=== PATIENT | female | born 1955 | race Caucasian/White ===

== ENCOUNTER → 2019-03-23 09:18 | Outpatient (CLI) | payer OTHER, SELFPAY ==
--- NOTE | ~2019-03-23 | MR_ITS ---
EXAMINATION: MR lumbar spine wo con DATE: 03/23/2019 10:28 INDICATION: Mid to low back pain. Radiculopathy. TECHNIQUE: Magnetic resonance imaging (MRI) of the lumbar spine was performed without intravenous con trast. Sequences included sagittal T2-weighted FSE, sagittal T2-weighted FS FSE, sagittal T1-weighted FSE, and axial T2-weighted FSE. COMPARISON: None FINDINGS: There is 24 degrees levoscoliosis of lumbar spine. There is 4 mm anterolisthesis of L4 on L 5. There is 3 mm retrolisthesis of L1 on L2 and L2 on L3. Vertebral body heights are normal. There is mildly decreased disc height at T12-L1, severely decreased disc height at L1-L2, L2-L3, and L3-L4, m ildly decreased disc height at L4-L5, and moderately decreased disc height at L5-S1. The distal spina l cord signal intensity is normal. The conus medullaris is at T12-L1. The following disc levels are s pecifically discussed: L1-L2: The disc is bulging and has an annular fissure. There is mild bilateral facet joint osteoarthr itis. There is mild bilateral neural foraminal stenosis. There is mild central canal stenosis. L2-L3: The disc is bulging and has an annular fissure. There is moderate right and mild left facet valentina int osteoarthritis. There is mild bilateral neural foraminal stenosis. There is mild central canal st enosis. L3-L4: The disc is bulging and has an annular fissure. There is severe bilateral facet joint osteoart hritis. There is mild right and moderate left neural foraminal stenosis. There is moderate central ca nal stenosis. L4-L5: The disc is bulging and has an annular fissure. There is severe bilateral facet joint osteoart hritis. There is mild right and moderate left neural foraminal stenosis. There is severe central camille l stenosis. L5-S1: The disc is bulging and has an annular fissure. There is moderate right and severe left facet joint osteoarthritis. There is mild right and moderate left neural foraminal stenosis. There is mild central canal stenosis. IMPRESSION: 1. Severe lumbar spondylosis. 2. Lumbar levoscoliosis. Reviewed, dictated and finalized at location A. MAKER
== END ==
PROVIDERS: PCP Internal Medicine; Visit Provider Internal Medicine
DX: M47.26 Other spondylosis with radiculopathy, lumbar region (principal)
CPT/HCPCS: 72148

== ENCOUNTER 2019-11-19 09:39 | Outpatient (CLI) | payer OTHER, SELFPAY ==
--- NOTE | ~2019-11-19 | XR_ITS ---
XR lumbar spine min 4V DATE: 11/19/2019 10:18 INDICATION: Chronic low back pain. No injury. TECHNIQUE: AP, lateral, bilateral oblique and coned lateral lumbosacral views COMPARISON: 03/23/2019 MRI lumbar spine FINDINGS: There is prominent rotatory levoscoliosis and severe degenerative disc disease throughout t he lumbar spine. There is degenerative change at the apophyseal joints as well, with associated grade 1 anterolisthesis at L4-5. The sacroiliac joints are intact. There is extensive calcification of the abdominal aorta. IMPRESSION: Prominent rotatory levoscoliosis and severe degenerative disease of the lumbar spine Grade 1 anterolisthesis at L4-5 due to degenerative change at the apophyseal joints Reviewed, dictated and finalized at location A. IMPRESSION: Prominent rotatory levoscoliosis and severe degenerative disease of the lumbar spine Grade 1 anterolisthesis at L4-5 due to degenerative change at the apophyseal valentina ints
== END 2019-11-19 09:40 | disposition home or self-care (01) ==
PROVIDERS: PCP Internal Medicine; Visit Provider Neurological Surgery
DX: M51.36 Other intervertebral disc degeneration, lumbar region (principal); M43.16 Spondylolisthesis, lumbar region; M48.062 Spinal stenosis, lumbar region with neurogenic claudication; M46.1 Sacroiliitis, not elsewhere classified
CPT/HCPCS: 72110

== ENCOUNTER 2019-12-09 13:34 | Outpatient (CLI) | payer OTHER, SELFPAY ==
--- NOTE | 2019-12-09 13:44 | ECHO_ITS ---
Patient Info Name: Wilner Carey Age: 64 years : 1955 Gender: Female Ht: 63 in Wt: 210 lbs BSA: 2.10 m2 HR: 68 bpm BP: 142 / 89 mmHg Technical Quality: Good Exam Date: 12/09/2019 2:13 PM Exam Location: [facility] Patient Status: Outpatient Admit Date: 12/09/2019 Staff Ordering Physician: Jono Galeano DO Flotation Operator: Yaneli Smith RDCS Attending Provider: Jono Galeano DO Referring Physician: Froylan RAHMAN; Exam Type: CA echo doppler color flow Study Info Indications R06.00 - Dyspnea, unspecified Complete two-dimensional, color flow and Doppler transthoracic echocardiogram is performed. Summary 1. Complete two-dimensional, color flow and Doppler transthoracic echocardiogram is performed. 2. Left ventricular chamber dimension is normal. 3. Ventricular septum is sigmoid shaped. No LVOT obstruction. 4. Left ventricular systolic function is normal, estimated at 60-65%. 5. The left ventricular diastolic function is grade I diastolic dysfunction. 6. E/e' 19 is elevated. 7. Left atrial chamber dimension is mildly enlarged. 8. There is mild aortic valve regurgitation. 9. There is trace mitral valve regurgitation. 10. There is trace tricuspid valve regurgitation. 11. No pulmonary hypertension, estimated pulmonary arterial systolic pressure is 25 mmHg. Left Ventricle E/e' 19 is elevated. Ventricular septum is sigmoid shaped. No LVOT obstruction. Left ventricular chamber dimension is normal. Left ventricular systolic function is normal, estimated at 60-65%. The left ventricular diastolic function is grade I diastolic dysfunction. Right Ventricle Right ventricular chamber dimension is normal. Right ventricular systolic function is normal. Left Atria Left atrial chamber dimension is mildly enlarged. Right Atria Right atrial chamber dimension is normal. Aortic Valve The aortic valve is trileaflet. There is no aortic valve stenosis. There is mild aortic valve regurgitation. Pulmonic Valve There is no pulmonic regurgitation. Mitral Valve There is no mitral valve stenosis. There is trace mitral valve regurgitation. Tricuspid Valve There is trace tricuspid valve regurgitation. No pulmonary hypertension, estimated pulmonary arterial systolic pressure is 25 mmHg. Pericardium/Pleural There is no pericardial effusion. Inferior Vena Cava Normal inferior vena cava with >50% collapse upon inspiration consistent with normal right atrial pressure, 5 mmHg. Aorta The aortic root size at the sinus of Valsalva is normal. Left Ventricular Outflow Tract Name Value Normal LVOT 2D LVOT Diameter 2.0 cm LVOT Doppler LVOT Peak Gradient 5 mmHg LVOT Mean Gradient 3 mmHg LVOT VTI 28 cm LVOT VTI/AV VTI Ratio 0.8 LVOT Stroke Volume 85 ml LVOT CO 14.7 l/min LVOT CI 7.0 l/min/m2 Pulmonic Valve
== END 2019-12-09 13:35 | disposition home or self-care (01) ==
LOC: ANHCARD 13:37
PROVIDERS: PCP Internal Medicine; Visit Provider Internal Medicine Cardiovascular Disease
DX: R06.00 Dyspnea, unspecified (principal); I35.1 Nonrheumatic aortic (valve) insufficiency
CPT/HCPCS: 93306

== ENCOUNTER 2021-12-11 09:43 | Outpatient (CLI) | payer OTHER, SELFPAY ==
--- NOTE | ~2021-12-11 | NM_ITS ---
EXAMINATION: NM mike stress w perfusion DATE: 12/11/2021 12:40 INDICATION: Dyspnea, unspecified. TECHNIQUE: Rest images were obtained following intravenous administration of 10.4 mCi Tc99m tetrofosm in (Myoview). The patient was infused intravenously with Lexiscan (regadenoson). Then, 31.7 mCi Tc99m tetrofosmin (Myoview) was administered intravenously, and supine and prone stress images were obtain ed. Data was reconstructed into short axis and horizontal and vertical long axis SPECT images. Gated SPECT images were also obtained. COMPARISON: None. FINDINGS: There is a moderate-sized, moderate severity, fixed perfusion defect involving left ventric ular apex, apical to mid anterior segments, apical septal segment, and mid anteroseptal segment, cons istent with infarct. There is no reversible component to suggest ischemia. There is no segmental wall motion abnormality. Left ventricular ejection fraction measures 63%. IMPRESSION: 1. 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 2. Normal left ventricular ejection fraction measuring 63%. Reviewed, dictated and finalized at location A. IMPRESSION: 1. Moderate-sized area of moderate infarct involving left ventricular apex, api ricco to mid anterior segments, apical septal segment, and mid anteroseptal segme nt. 2. Normal left ventricular ejection fraction measuring 63%.
--- NOTE | 2021-12-11 09:55 | EST_ITS ---
Patient Info Name: Wilner Carey Age: 66 years : 1955 Gender: Female Ht: 63 in Wt: 197 lbs BSA: 2.03 m2 Exam Date: 12/11/2021 11:20 AM Exam Location: [facility] Stress Patient Status: Outpatient Admit Date: 12/11/2021 Staff Ordering Physician: Jono Galeano DO Attending Provider: Jono Galeano DO Exercise Technologist: Bridgett Bardales RDCS Exercise Physician: Jono Galeano DO Exam Type: CA stress mike w NM Study Info Indications R06.09 - Other forms of dyspnea A regadenoson stress test was performed. Summary 1. 1. Inconclusive lexiscan stress test for ischemic ST changes by ECG criteria due to baseline LBBB. 2. 2. Baseline hypertension. 3. 3. Nuclear scan to follow and will be reported separately. Please correlate with it. 4. 4. Patient informed of the above results. Protocol: Lexiscan Stress ECG Details Stage: REST Duration (min): 5 min : 0 sec HR (bpm): 66 SBP (mmHg): 161 DBP (mmHg): 80 Stage: REST Duration (min): 9 min : 24 sec HR (bpm): 67 SBP (mmHg): 161 DBP (mmHg): 80 Stage: STAGE 1 Duration (min): 1 min : 0 sec HR (bpm): 83 SBP (mmHg): 161 DBP (mmHg): 80 Stage: RECOVERY Duration (min): 1 min : 0 sec HR (bpm): 83 SBP (mmHg): 160 DBP (mmHg): 73 Stage: RECOVERY Duration (min): 2 min : 0 sec HR (bpm): 84 SBP (mmHg): 161 DBP (mmHg): 75 Stage: RECOVERY Duration (min): 3 min : 0 sec HR (bpm): 81 SBP (mmHg): 162 DBP (mmHg): 74 Stage: RECOVERY Duration (min): 3 min : 18 sec HR (bpm): 81 SBP (mmHg): 162 DBP (mmHg): 74 Rest HR: 67 bpm Peak HR: 88 bpm Rest Sys BP: 161 mmHg Peak Sys BP: 162 mmHg Max Pred HR: 156 bpm % Max Pred HR: 56 % Target HR: 133 bpm Max RPP: 14,256 bpm*mmHg Termination Reason: Completed protocol Cardiac Symptoms: SOB, nause Total Time: 1 min : 0 sec Rest Lawson BP: 80 mmHg Peak Lawson BP: 74 mmHg Total Dose: 0.4 mg Resting ECG Sinus rhythm, LBBB. Stress ECG No ST changes. Arrhythmias None. Report Signatures
== END 2021-12-11 09:44 | disposition home or self-care (01) ==
LOC: ANHCARD 09:45
PROVIDERS: PCP Family Medicine; Visit Provider Internal Medicine Cardiovascular Disease
DX: R06.00 Dyspnea, unspecified (principal); I10 Essential (primary) hypertension
CPT/HCPCS: 78452; 93017; A9502; J2785

== ENCOUNTER 2022-12-13 10:07 | Outpatient (CLI) | payer OTHER, MEDICARE, SELFPAY ==
--- NOTE | ~2022-12-13 | XR_ITS ---
XR hand RT min 3V DATE: 12/13/2022 10:32 INDICATION: Pain and stiffness of right hand TECHNIQUE: 3 views COMPARISON: None FINDINGS: There is joint space narrowing at the first and third metacarpophalangeal and multiple inte rphalangeal joints, particularly the distal interphalangeal joint of the fourth and fifth digits. The re is associated spurring at the DIP joints of the fourth and fifth digits. No fracture or dislocation, periosteal reaction or bone destruction or chondrocalcinosis is noted. IMPRESSION: Polyarticular osteoarthritis Reviewed, dictated and finalized at location B.
--- NOTE | ~2022-12-13 | XR_ITS ---
XR hand LT min 3V DATE: 12/13/2022 10:32 INDICATION: Left hand pain, stiffness TECHNIQUE: 3 views COMPARISON: None FINDINGS: There is osteopenia. There is polyarticular osteoarthritis, involving the triscaphe, first carpal metacarpal and particula rly the distal interphalangeal joints of the fourth and fifth digits, in addition to some narrowing a t the first through third metacarpophalangeal joints. No fracture or dislocation, periosteal reaction or bone destruction or chondrocalcinosis is noted. IMPRESSION: Polyarticular osteoarthritis Reviewed, dictated and finalized at location B.
== END 2022-12-13 10:08 | disposition home or self-care (01) ==
PROVIDERS: PCP Family Medicine; Visit Provider Plastic Surgery
DX: M19.041 Primary osteoarthritis, right hand (principal); M19.042 Primary osteoarthritis, left hand
CPT/HCPCS: 73130

== ENCOUNTER 2025-01-02 18:37 | Emergency (ER) | payer MEDICARE, SELFPAY ==
--- NOTE | 2025-01-02 18:38 | ED.URI ---
HPI - URI/Sore Throat General Chief Complaint: Upper Respiratory Infection Stated Complaint: URI Time Seen by Provider: 01/02/25 18:38 Source: patient Mode of arrival: ambulatory Limitations: no limitations History of Present Illness HPI Narrative: Wilner is a 69-year-old female patient presenting to the clinic today with complaints of sinus congestion, sinus pressure, and productive cough with green phlegm x 2.5 weeks. She reports has been taking DayQuil, elderberry syrup, and robitussin for her symptoms. Denies any fever, chills, or body aches. Related Data Home Medications ?Medication ?Instructions ?Recorded ?Confirmed ?Last Taken ?Type acetaminophen 325 mg tablet 325 mg PO Q6H PRN 11/02/19 09/08/24 Unknown History (Tylenol) omeprazole 20 mg capsule,delayed 20 mg PO DAILY 11/02/19 09/08/24 Unknown History release omega 2-ska-muh-fish oil 1,000 mg 1 cap PO DAILY 01/29/22 09/08/24 Unknown History (120 mg-180 mg) capsule (Fish Oil) Allergies Allergy/AdvReac Type Severity Reaction Status Date / Time No Known Allergies Allergy Verified 01/02/25 18:48 Review of Systems Review of Systems: Pertinent positives per HPI. Patient denies any fever, chills, rash, headache, visual changes, dizziness, shortness of breath, chest pain, palpitations, nausea, vomiting, diarrhea, constipation, abdominal pain, or any urinary issues. [facility] Past Medical History Medical History Facial paralysis on left side Left shoulder pain Hand deformity Arthritis Lumbar pain Venous stasis Skin abnormalities Facial spasm History of blood transfusion Dyslipidemia Hypertension Surgical History Surgical History History of cholecystectomy History of carpal tunnel release History of delivery Family History Family History Father , age 76 Hypertension Heart disease Mother Heart disease Lymphoma Other Family history of arthritis Family history of cardiovascular disease Family history of malignant neoplasm Social History Social History Social History: Patient declined [facility]- 09/16/23 Smoking packs per day: 0.5 Smoking cigarettes per day: 10.0 Years smoked: 50 Smoking pack-years: 25.00 Smoking status: Current every day smoker Tobacco type: cigarettes Alcohol intake: current Do You Feel Safe in your Home?: Yes Lack of Transportation: No Lack of Food: Never True Current Housing: I Have Housing Concerned About Future Housing: No Difficulty Paying Gas/Electric Bills: No Difficulty Paying for Meds: No Currently Unemployed: No Education: High School Diploma/GED Difficulty w/ Childcare or Family Care: No Living arrangements: with family Occupation/Education: occupation Additional occupation/education comments: [employer] Comments At the time of my signature, I reviewed and agree with the nursing past medical, surgical, social, and family history. There is no relevant family history pertinent to the patient complaint. Exam Narrative: General: Well-developed, obese, in no apparent distress Head: Normocephalic, atraumatic Eyes: Pupils equally round and reactive to light bilaterally, EOM intact, sclera and conjunctive clear, no discharge, lids normal Ears: TMs intact and congested, ear canals clear, no drainage, grossly hearing normal. Nose: Nares patent, green nasal discharge, moderate inflammation, maxillary sinus tenderness. Mouth: Oral pharynx red without lesions or masses, good dentition, MMM. PND Neck: Supple, trachea midline, no enlargement of anterior or posterior cervical nodes, no thyroid masses or goiter palpable. Cardio: Regular rate and rhythm, s1 and s2 normal, no murmur appreciated. Resp: Clear to auscultation bilaterally, no rhonchi, rales, wheezing or rubs Course Course Emergency Course: Portions of this record may have been created with voice recognition software. Level of Care: Express Care Visit Vital Signs Vital signs: Vital Signs Temperature 36.8 C 01/02/25 18:48 Pulse Rate 84 01/02/25 18:48 Respiratory Rate 18 01/02/25 18:48 Blood Pressure 158/72 H 01/02/25 18:48 Pulse Oximetry 97 01/02/25 18:48 Oxygen Delivery Room Air 01/02/25 18:48 Temperature 36.8 C 01/02/25 18:48 Pulse Rate 84 01/02/25 18:48 Respiratory Rate 18 01/02/25 18:48 Blood Pressure 158/72 H 01/02/25 18:48 Pulse Oximetry 97 01/02/25 18:48 Oxygen Delivery Room Air 01/02/25 18:48 Vital signs reviewed MDM - URI/Sore Throat MDM Narrative Medical decision making narrative: At the time of visit patient is resting comfortably on the exam table. Patient appears to be nontoxic. Complaints of sinus congestion, sinus pressure, and productive cough with green phlegm x 2.5 weeks. She reports has been taking DayQuil, elderberry syrup, and Robitussin for her symptoms. Denies any fever, chills, or body aches. On exam patient has bilateral TMs intact and congested, green nasal drainage, moderate return inflammation, maxillary sinus tenderness, oropharynx red with postnasal drip, heart rate regular rate and rhythm, lung sounds clear in the clinic today. Plan: I suspect patient has acute bacterial rhinosinusitis. Prescription for Augmentin, prednisone, and Tessalon Perles was sent to the pharmacy. Supportive measures were discussed with the patient and they voiced understanding discharge instructions and agrees to treatment plan. Return precautions reviewed Differential Diagnosis Differential diagnosis: Likely upper respiratory infection, otitis media, sinusitis, viral infection, bronchitis, influenza, pharyngitis and other (COVID) Discharge Plan Discharge Clinical Impression: Acute bacterial rhinosinusitis Patient Disposition: Home Condition: Stable Instructions: Antibiotic Form, Rhinosinusitis (ED) Additional Instructions: Take prescription medications only as prescribed-Augmentin, prednisone, and Tessalon Perles Increase fluids and stay well hydrated May take Tylenol or motrin as directed on bottle for pain/fever May use Flonase 1 spray in each nare daily May take OTC antihistamines such as Zyrtec or Claritin daily as directed on bottle May apply Vicks vapor rub to chest to open sinuses Sinus rinses for congestion Cepacol spray, cough drops, throat lozenges, warm tea with honey/lemon, gargle salt water to soothe throat BRAT diet for diarrhea Clear liquids x 24 hours then advance as tolerated for nausea/vomiting Go to the ED if you develop a worsening in your condition- high fever not controlled by Tylenol or Motrin, dehydration, weakness, lethargy, shortness of breath, or chest pain. Follow up with your PCP in 3-5 days if symptoms persist. Patient Language: Telugu Prescriptions: New prednisone 20 mg tablet 40 mg PO DAILY 5 Days Qty: 10 0RF amoxicillin-pot clavulanate 875-125 mg tablet 1 tablet PO Q12H 10 Days Qty: 20 0RF benzonatate 200 mg capsule 200 mg PO TID 7 Days Qty: 21 0RF No Action omeprazole 20 mg capsule,delayed release(DR/EC) 20 mg PO DAILY acetaminophen [Tylenol] 325 mg tablet 325 mg PO Q6H PRN omega 5-bwp-uli-fish oil [Fish Oil] 1,000 mg (120 mg-180 mg) capsule 1 cap PO DAILY nebivolol [Bystolic] 2.5 mg tablet 2.5 mg PO DAILY Qty: 90 1RF rosuvastatin 10 mg tablet See Rx Instructions .ROUTE .COMPLEX Qty: 90 1RF Dose Instruction: Take 1 tablet by mouth once daily Rx Instructions: Take 1 tablet by mouth once daily losartan-hydrochlorothiazide 100-25 mg tablet 1 tablet PO DAILY Qty: 90 1RF meloxicam 15 mg tablet 15 mg PO DAILY Qty: 90 1RF fluoxetine 40 mg capsule 40 mg PO DAILY Qty: 90 1RF Follow-up/Referrals: Xiao Cain APRN [Primary Care Provider, Family Practice] Time of Disposition: 18:52 Quality NIHSS Nursing Documentation ED NIHSS nursing documentation: reviewed/agree
--- OUTSIDE RECORDS SUMMARY | 2025-01-02 18:40 | XMS_ITS | Clinical Summary ---
Author Organization [facility] Address [address] [place] [address] Care Team Providers Care Manager Commodities Name Role Phone Unavailable Primary Care Provider Unavailabl e Source Comments [facility],non-owned Affiliates and Associated Physician Practices is amultiple site organization consisting of ambulatory clinics and hospital sitesin [place], [place], [place] and [place]. This disclosure is being madepursuant to the Care Everywhere program and may not contain all information available regarding this patient. Last updated 17.[facility] Allergies No known active allergies Medications * Be aware that medications may not be up to date on this document. Alwaysverify current medications with the patient. acetaminophen (Tylenol) 325 MG tablet Take 2 (two) tablets by mouth every 6 hours as needed Maximum allowable Acetaminophen amount = 4 Grams (4000 mg) / 24 hours. 11/16/19 22 Active ibuprofen (Motrin) 600 MG tablet Take 1 (one) tablet by mouth every 6 hours as needed 11/16/19 22 Active amLODIPine (Norvasc) 10 MG tabletIndication s:Essential hypertension Take 1 (one) tablet by mouth once daily 90 tablet 1 11/23/19 22 Active aspirin (Aspirin) 81 MG chew tablet Take 1 (one) tablet by mouth once daily 90 tablet 1 11/23/19 22 Active losartan (Cozaar) 50 MG tabletIndication s:Essential hypertension Take 1 (one) tablet by mouth once daily 90 tablet 1 11/23/19 Active rosuvastatin (Crestor) 10 MG tablet Take 1 (one) tablet by mouth once daily 90 tablet 1 11/23/19 Active Venlafaxine HCl (venlafaxine ER 24hr) 37.5 MG tablet Take 1 (one) tablet by mouth once daily 90 tablet 1 11/23/19 Active omeprazole (PriLOSEC) 20 MG capsule Take 20 mg by mouth daily before breakfast Active vitamin D3 (Cholecaciferol) 125 MCG (5000 UT) Take 5,000 Units by mouth once daily Active Magnesium 100 MG Take 200 mg by mouth 2 times daily for eye twitch Active Iron-Vitamin C 65-125 MG TABS Take 1 tablet by mouth once daily Active Homeopathic Products (LEG CRAMPS PO) Take 3 tablets by mouth once daily as needed Active traMADol (Ultram) 50 MG tablet Take 50 mg by mouth every 6 hours as needed 11/07/19 Active Blood Pressure Monitoring (Blood Pressure Cuff) MISCIndications: Syncope and collapse,Essenti al hypertension Use 1 Units once daily 1 Each 11/23/19 Active support hose knee high moderate compression (Jobst) support hoseIndications: Syncope and collapse Apply 1 (one) Each to affected area as directed USE DAILY NEEDED TO REDUCE LOWER EXTREMITY SWELLING. PUT ON IN AM AND TAKE OFF AT BEDTIME. 1 Each 11/23/19 Active Active Problems Problem Noted Date Diagnosed Date Syncope and collapse 11/12/2021 LBBB (left bundle branch block) 11/12/2021 Fall 11/12/2021 Immunizations Immunization Administration Dates Next Due HEP A VACCINE, ADULT 08/11/2000,09/12/1999 iNFLUENZA VACCINE, RECOM-DAILY, QUADR. (FLUBLOCK QUADRIVALENT; 18Y+) (RIV4) 11/05/2020 Family History Medical History Relation Name Comments CVA Father Cancer Father Relation Name Status Comments Father Social History Tobacco Use Types Packs/Day Years Used Date Smoking Tobacco: Every Day Cigarettes 0.5 50 Smokeless Tobacco: Never Alcohol Use Standard Drinks/Week Comments Never 0 (1 standard drink = 0.6 oz pur e alcohol) Hunger Vital Sign Answer Date Recorded Within the past 12 months, y ou worried that your food would run out before you got the money to buy more. Never true 11/15/19 22 Within the past 12 months, t he food you bought just didn't last and you didn't have money to get more. Never true 11/14/2021 Comments Unknown Sex and Gender Information Value Date Recorded Sex Assigned at Not on file Legal Sex Female 8:05 AM CDT Gender Identity Not on file Sexual Orientation Not on file Last Filed Vital Signs Vital Sign Reading Time Taken Comments Blood Pressure 142/78 11/22/2021 10:35 AM CDT Pulse 69 11/22/2021 10:35 AM CDT Temperature 36.2 C (97.2 F) 11/22/2021 10:35 AM CDT Respiratory Rate 18 11/22/2021 10:35 AM CDT Oxygen Saturation 99% 11/22/2021 10:35 AM CDT Inhaled Oxygen Concentration - - Weight 89.8 kg (198 lb) 11/22/2021 10:35 AM CDT Height 160 cm (5' 3) 11/22/2021 10:35 AM CDT Body Mass Index 35.07 11/22/2021 10:35 AM CDT Plan of Treatment Health Maintenance Due Date Last Done Comments BONE DENSITY TESTING 1955 COLOGUARD (AGES 45-75) - COL ON CA SCREENING 1957 COLON MONITORING 1957 COLONOSCOPY - COLON CA SCREENING 1957 CT COLONOGRAPHY - COLON CA SCREENING 1957 Colorectal Cancer Screening 1957 FIT - COLON CA SCREENING 1957 FLEX SIG - COLON CA SCREENING 1957 MAMMOGRAM 1957 HEPATITIS C SCREENING 06/13/1975 DTAP/TDAP/TD VACCINES (1 - Tdap) 1976 LUNG CANCER SCREENING 06/18/2007 PNEUMOCOCCAL VACCINE 50+ (1 of 1 - PCV) 06/18/2007 ZOSTER VACCINE (1 of 2) 06/18/2007 DEPRESSION SCREENING 02/11/2024 COVID-19 VACCINE (4 - 2024-2 6 season) 2024 11/05/2020, 04/30/2020, 04/08/2020 INFLUENZA VACCINE (#1) 2024 11/05/2020 SCREENING FOR DIABETES 11/15/2024 2, 11/13/2021, 11/12/2021 Respiratory Syncytial Virus (RSV) Vaccine Pt: or over 60 yrs (1 - 1-dose 75+ series) 2032 HEPATITIS B VACCINE Aged Out No longe r eligible based on patient's age to complete this topic HIB VACCINE Aged Out No longer eligi ble based on patient's age to complete this topic HPV VACCINE Aged Out No longer eligi ble based on patient's age to complete this topic MENINGOCOCCAL (Group B) VACCINE SHARED DECISION-MAKING Aged Out No longer eligible based on patient's age to complete this topic MENINGOCOCCAL GROUPS A/C/Y/W VACCINE Aged Out No longer eligible b ased on patient's age to complete this topic Procedures Procedure Name Priority Date/Time Associated Diagnosis Comments RENAL FUNCTION PANEL AM Draw 11/15/2021 7:37 AM CDT Fall, initial encounter from Last 3 Months or Most Recently Relevant to Health Maintenance Results * (ABNORMAL) RENAL FUNCTION PANEL (11/15/2021 7:37 AM CDT) BUN 9 7 - 26 mg/dL 11/15/2021 8:43 AM [facility] Creatinine 0.71 0.56 - 0.96 mg/dL 11/15/2021 8:43 AM [facility] Sodium 143 136 - 145 mmol/L 11/15/2021 8:43 AM [facility] Potassium 4.2 3.5 - 4.5 mmol/L 11/15/2021 8:43 AM [facility] Chloride 108(H) 98 - 107 mmol/L 11/15/2021 8:43 AM [facility] CO2 27 22 - 29 mmol/L 11/15/2021 8:43 AM [facility] Glucose 107 70 - 115 mg/dL 11/15/2021 8:43 AM [facility] Albumin 3.3(L) 3.4 - 5.0 g/dL 11/15/2021 8:43 AM [facility] Calcium 9.0 8.4 - 10.2 mg/dL 11/15/2021 8:43 AM [facility] Phosphorus 3.2 2.9 - 5.1 mg/dL 11/15/2021 8:43 AM CDT [facility] Anion Gap 12 8 - 18 11/15/2021 8:43 AM T [facility] BUN/Creatinine Ratio 13 7 - 23 11/15/2021 8:43 AM T [facility] Osmolality Calculated 295 270 - 300 mOsm/kg 11/15/2021 8:43 AM T [facility] eGFR by CKD-EPI >90 >=90 mL/min/1.7 3 m2 11/15/2021 8:43 AM T [facility] Blood BLOOD SPECIMEN / Unknown Lab Venipuncture / Unknown 11/15/2021 7:37 AM CDT 11/15/2021 8:11 AM CDT Abhijeet Hahn [employer] - CHEMISTRY ORDERA BLES Final Result [facility] [address] [place] [address], [facility] [phone] from Last 3 Months or Most Recently Relevant to Health Maintenance Insurance [facility] [employer] [address] [place] [address] [employer] Advance Directives * Full Code (Latest Code Status on File) Date Activated Date Inactivated Comments 11/12/2021 6:03 PM 11/15/2021 12:51 PM
--- OUTSIDE RECORDS SUMMARY | 2025-01-02 18:40 | XMS_ITS | Clinical Summary ---
Author Organization [facility] Address [address] [place] [address] Care Team Providers Care Building Maintenance Custodian Name Role Phone Jonathon Burgos MD Primary Care Provider [phone] Allergies No known active allergies Medications naproxen 500 MG tablet Take 500 mg by mouth 2 (two) times daily as needed. 06/24/2018 Active venlafaxine XR 37.5 MG 24 hr capsule Take 37.5 mg by mouth nightly. 10/16/2018 Active amlodipine 5 MG tablet Take 5 mg by mouth nightly. 10/16/2018 Active losartan-hydroC HLOROthiazide 50-12.5 MG tablet Take 1 tablet by mouth daily. Active rosuvastatin 10 MG tablet Take 1 tablet by mouth nightly. 12/16/2018 Active omeprazole 20 MG capsule Take 20 mg by mouth daily. Active traMADol 50 MG tablet Take 100 mg by mouth every 6 (six) hours as needed. Active HYDROcodone-ralph taminophen (NORCO) 5-325 MG tabletIndicatio ns:Acute Pain < 7 Day Supply Take 1 tablet by mouth every 4 (four) hours as needed. 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 Never 12/14/2019 Average Number of Drinks Not on file 020 Frequency of Binge Drinking Not on file 04/2019 Comments No Sex and Gender Information Value Date Recorded Sex Assigned at Not on file Legal Sex Female 8:27 PM CDT Gender Identity Not on file Sexual Orientation Not on file Last Filed Vital Signs Vital Sign Reading Time Taken Comments Blood Pressure 167/72 09/11/2021 11:02 AM CDT Pulse 85 09/11/2021 11:02 AM CDT Temperature 36.7 C (98 F) 09/11/2021 11:02 AM CDT Respiratory Rate 20 09/11/2021 11:02 AM CDT Oxygen Saturation 97% 09/11/2021 11:02 AM CDT Inhaled Oxygen Concentration - - Weight 89.8 kg (198 lb) 09/11/2021 11:07 AM CDT Height 160 cm (5' 3) 09/11/2021 11:02 AM CDT Body Mass Index 35.07 09/11/2021 11:02 AM CDT Plan of Treatment Health Maintenance Due Date Last Done Comments Colorectal Cancer Screening Colonoscopy (10 Years) 1957 Hepatitis C 06/18/1975 DTaP, Tdap and Td Vaccines ( 1 - Tdap) 1976 Pneumococcal Vaccine: 50+ Years (1 of 2 - PCV) 1976 Mammogram Screening 1997 Zoster Vaccines (1 of 2) 06/18/2007 Dexa Scan (General) 2022 COVID-19 Vaccine (4 - 2024-2 6 season) 2024 11/05/2020, 04/30/2020, 04/08/2020 Influenza Adult (#1) 2024 11/05/2020 RSV Immunization or 60+ Years (1 - 1-dose 75+ series) 2032 Hepatitis A Vaccines Aged Out 08/11/2000, 09/12/1999 No longer eligible based on patient's age to complete this topic Meningococcal B Vaccine Aged Out No l onger eligible based on patient's age to complete this topic Meningococcal Vaccine Aged Out No sukhi martha eligible based on patient's age to complete this topic RSV Immunizations Under 20 Months Aged Out No longer eligible b ased on patient's age to complete this topic Insurance R Care Teams Building Maintenance Custodian Relationship Specialty Start Date End Date Jonathon Burgos MD [address] [place] [phone] PCP - General INTERNAL MEDICINE 02/18/19
[2025-01-02 18:48] VITALS: BP 158/72; PULSE 84; RESP 18; TEMP 36.8; O2SAT 97
== END 2025-01-02 18:57 | disposition home or self-care (01) ==
PROVIDERS: Emergency Provider Nurse Practitioner Family; PCP Nurse Practitioner Family
DX: J01.90 Acute sinusitis, unspecified (principal); F17.210 Nicotine dependence, cigarettes, uncomplicated; I10 Essential (primary) hypertension; E78.5 Hyperlipidemia, unspecified; M19.90 Unspecified osteoarthritis, unspecified site
CPT/HCPCS: 99213; G0463